=== PATIENT | female | born 1985 | race Caucasian/White ===

== ENCOUNTER 2023-08-04 19:11 | Emergency (ER) | payer OTHER ==
[~2023-08-04] VITALS: Ht 165.1 cm; Wt 63.6 kg
[2023-08-04 19:17] VITALS: TEMP 97.9
[2023-08-04 19:42] LABS: BASO % 0.6 % (0.0-2.0); EOS # 0.1 K/mm3 (0.0-0.7); EOS % 2.3 % (0.0-4.0); GRAN # 2.4 K/mm3 (1.4-6.5); GRAN % 44.4 % (42.2-75.2); HEMATOCRIT 40.4 % (37.0-47.0); HEMOGLOBIN 14.2 g/dl (12.5-16.0); LYMPH # 2.3 K/mm3 (1.2-3.4); LYMPH % 43.7 % (20.0-51.0); MEAN CELL VOLUME 92 fl (80.0-100.0); MEAN CORPUSCULAR HEMOGLOBIN 33 pg (27-31); MEAN CORPUSCULAR HGB CONC 35 g/dl (33.0-37.0); MEAN PLATELET VOLUME 9.1 fl (7.4-10.4); MONO # 0.5 K/mm3 (0.1-0.6); MONO % 8.8 % (1.7-9.3); PLATELET COUNT 235 K/mm3 (130-400); RED BLOOD COUNT 4.37 M/mm3 (4.10-5.30); REDCELL DISTRIBUTION WIDTH-CV 13.3 % (11.5-14.5)
[2023-08-04] MEDS ORDERED: Iohexol 300 - 100 ML VIAL IV ONE (19:59)
[2023-08-04] MEDS ORDERED: NS 70 ML IV ONE (20:00)
[2023-08-04 20:01] LABS: ALBUMIN 4.2 gm/dL (3.5-5.0); BILIRUBIN,TOTAL 0.7 mg/dL (0.2-1.2); CALCIUM 9.3 mg/dL (8.4-10.2); CREATININE, serum 0.87 mg/dL (0.57-1.11); POTASSIUM 3.9 mmol/L (3.5-4.5); TOTAL PROTEIN 7.5 gm/dL (6.2-8.1)
[2023-08-04 20:08] LABS: TROPONIN-I 0.01 ng/mL (0.00-0.033)
[2023-08-04 20:27] LABS: URINE APPEARANCE Clear (CLEAR/HAZY); URINE COLOR Yellow (YELLOW); URINE GLUCOSE Negative (NEGATIVE); URINE KETONE Negative (NEGATIVE); URINE NITRATE Negative (NEGATIVE); URINE PROTEIN(semi-quant) Negative (NEGATIVE); URINE UROBILINOGEN 0.2 E.U/dL (0.2-1.0)
[2023-08-04 20:28] LABS: COLLECTION METHOD CLEAN CATCH; URINE BLOOD Negative (NEGATIVE)
[2023-08-04 20:39] LABS: URINE BACTERIA Rare /hpf (NONE SEEN); URINE RBC None Seen /hpf (0-2); URINE WBC None Seen /hpf (0-2)
[2023-08-04] MEDS ORDERED: Acetaminophen 500 MG TAB PO ONE (21:15)
[2023-08-04 21:18] VITALS: BP 120/90; PULSE 64
== END 2023-08-04 21:15 | disposition home or self-care (01) ==
LOC: COL.ER 19:11
PROVIDERS: Emergency Medicine
DX: R47.9 Unspecified speech disturbances (principal); H53.8 Other visual disturbances
CPT/HCPCS: Q9967